=== PATIENT | female | born 2005 | race Caucasian/White ===

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

== ENCOUNTER 2024-01-21 20:54 | Emergency (ER) | payer OTHER ==
[~2024-01-21] VITALS: Ht 167.6 cm; Wt 97.2 kg
[2024-01-21 20:54] VITALS: TEMP 97.7
[2024-01-21] MEDS ORDERED: HUMI40KI SC (21:07)
[2024-01-21] MEDS ORDERED: ERGO500029 (21:07)
[2024-01-21] MEDS ORDERED: FLUO-365 (21:07)
[2024-01-21] MEDS ORDERED: PROP20TA72 (21:07)
[2024-01-21] MEDS ORDERED: VIEN1TAB (21:07)
[2024-01-21] MEDS ORDERED: FLUO-290 (21:07)
[2024-01-21 21:40] LABS: BASO # 0.1 10^3/uL (0.0-0.2); BASO % 0.7 % (0.0-1.0); EOS % 0.4 % (0.0-3.0); HEMATOCRIT 42.5 % (36.0-47.0); HEMOGLOBIN 13.5 g/dl (12.0-15.5); LYMPH # 2.2 10^3/uL (1.5-5.0); LYMPH % 24.3 % (24.0-44.0); MEAN CORPUSCULAR HGB CONC 31.8 g/dl (32.0-36.5); MEAN CORPUSCULAR VOLUME 81.7 fl (80.0-96.0); MONO # 0.7 10^3/uL (0.0-0.8); MONO % 7.4 % (2.0-8.0); NEUTROPHILS # 6.1 10^3/uL (1.5-8.5); NEUTROPHILS % 67.1 % (36.0-66.0); PLATELET COUNT, AUTOMATED 392 10^3/uL (150-450); WHITE BLOOD COUNT 9.1 10^3/uL (4.0-10.0)
[2024-01-21 22:04] LABS: LIPASE 24 U/L (12-53)
[2024-01-21 22:06] LABS: ALBUMIN 3.6 G/DL (3.2-5.2); ALKALINE PHOSPHATASE 101 U/L (46-116); ALT/SGPT 19 U/L (7.0-40); AST/SGOT 10 U/L (<34); BILIRUBIN,DIRECT 0.2 MG/DL (<0.4); BILIRUBIN,TOTAL 0.6 MG/DL (0.3-1.2); BLOOD UREA NITROGEN 8 MG/DL (9-23); CALCIUM LEVEL 9.3 MG/DL (8.5-10.1); CARBON DIOXIDE LEVEL 23 MMOL/L (20-31); CHLORIDE LEVEL 106 MMOL/L (98-107); GLUCOSE, FASTING 97 MG/DL (60-100); POTASSIUM SERUM 3.9 MMOL/L (3.5-5.1); SODIUM LEVEL 138 MMOL/L (136-145); TOTAL PROTEIN 8.2 G/DL (5.7-8.2)
[2024-01-21 22:09] LABS: HCG, SERUM QUALITATIVE NEGATIVE (NEGATIVE)
[2024-01-21 22:46] LABS: PROCALCITONIN <0.04 ng/ml
[2024-01-21] MEDS: NS 1,000 ML IV ONE (22:50)
[2024-01-21] MEDS: ONDANSETRON 4MG 2ML VIAL IV ONE (22:50)
[2024-01-21] MEDS: KETOROLAC 30 MG/ML 1ML VIAL IV ONE (22:51)
[2024-01-21] MEDS: GASTROGRAFIN SOLUTION 30ML PO SCH (23:11)
[2024-01-22] MEDS ORDERED: ISOVUE-370 76% 100ML VIAL As Ordered ONE (00:29)
[2024-01-22] MEDS ORDERED: UCER9TAB PO (01:23)
[2024-01-22 01:30] VITALS: BP 120/64; O2SAT 99
[2024-01-22] MEDS: BUDESONIDE EC 3MG CAP (ENTOCORT EC) PO ONE (01:53)
[2024-01-22] MEDS: NORCO 5/325MG TABLET (HOME DOSE PACK) PO ONE (01:54)
== END 2024-01-22 01:59 | disposition home or self-care (01) ==
LOC: M ED 20:54
DX: K50.90 Crohn's disease, unspecified, without complications (principal); F41.1 Generalized anxiety disorder; F12.10 Cannabis abuse, uncomplicated; Z88.0 Allergy status to penicillin; Z79.899 Other long term (current) drug therapy
CPT/HCPCS: 74177; 80048; 80076; 81001; 83605; 83690; 84145; 84703; 85025; 86140; 96361; 96374; 96375; 99284; J1885; J2405; Q9963; Q9967

== ENCOUNTER → 2024-02-19 | Outpatient (REF) | payer OTHER ==
[~2024-02-19] MED LIST changes: +ERGO500029; +FLUO-290; +FLUO-365; +HUMI40KI SC; +PROP20TA72; +UCER9TAB PO; +VIEN1TAB
[2024-02-19 16:49] LABS: APPEARANCE, URINE CLEAR (CLEAR); BACTERIA, URINE AUTO NEGATIVE (NEGATIVE); BILIRUBIN, URINE AUTO NEGATIVE (NEGATIVE); BLOOD, URINE BLOOD 1+ (NEGATIVE); COLOR, URINE YELLOW (YELLOW); GLUCOSE, URINE (UA) AUTO NEGATIVE (NEGATIVE); KETONE, URINE AUTO NEGATIVE (NEGATIVE); LEUKOCYTE ESTERASE, URINE AUTO TRACE (NEGATIVE); MUCUS, URINE SMALL (NEGATIVE); NITRITE, URINE AUTO NEGATIVE (NEGATIVE); PROTEIN, URINE AUTO NEGATIVE (NEGATIVE); RBC, URINE AUTO 6 /HPF (0-3); SPECIFIC GRAVITY URINE AUTO 1.016 (1.002-1.035); SQUAMOUS EPITHELIAL CELL UR AU 3 /HPF (0-6); UROBILINOGEN, URINE AUTO 0.2 mg/dL (0.0-2.0); WBC, URINE AUTO 8 /HPF (0-3)
== END ==
LOC: M LAB REF 16:25
PROVIDERS: ATTEND Physician Assistant Medical
DX: N39.0 Urinary tract infection, site not specified (principal)